=== PATIENT | male | born 1935 | race Caucasian/White ===

== ENCOUNTER 2017-06-03 22:26 | Emergency (ER) | payer MEDICARE, OTHER ==
[~2017-06-03] VITALS: Ht 175.3 cm; Wt 88.6 kg
[~2017-06-03 22:26] MED LIST: CITA20TA11 PO; DABI150C PO; FLO0.4C PO; METF500T PO; METO100T14 PO; PRAV10TA38 PO
[2017-06-03] MEDS ORDERED: orphenadrine citrate 60mg/2ml inj. IM ONE (23:00)
[2017-06-03] MEDS ORDERED: HYDROcodone/acetaminophen 5mg/325mg tablet PO ONE (23:00)
[2017-06-03] MEDS ORDERED: CYCL-1 PO (23:44)
[2017-06-03] MEDS ORDERED: ketorolac trometh inj. 60 MG/2 ML VIAL IM ONE (23:45)
[2017-06-04] MEDS ORDERED: HYDROmorphone 1 mg/ml syringe IM ONE (00:55)
[2017-06-04] MEDS ORDERED: HYDROmorphone inj. 0.5 MG/0.5 ML DISP.SYRIN ONE (01:11)
[2017-06-04 01:39] VITALS: BP 100/80
== END 2017-06-04 01:42 | disposition home or self-care (01) ==
LOC: ER 22:27
DX: S33.5XXA Sprain of ligaments of lumbar spine, initial encounter (principal); M62.830 Muscle spasm of back; E11.9 Type 2 diabetes mellitus without complications; E78.00 Pure hypercholesterolemia, unspecified; I48.91 Unspecified atrial fibrillation; Z86.73 Personal history of transient ischemic attack (TIA), and cerebral infarction without residual deficits; Z95.0 Presence of cardiac pacemaker; Z88.8 Allergy status to other drugs, medicaments and biological substances; X50.3XXA Overexertion from repetitive movements, initial encounter; Y93.89 Activity, other specified; Y92.89 Other specified places as the place of occurrence of the external cause; Y99.8 Other external cause status
CPT/HCPCS: 96372; 99284; J1170; J1885; J2360

== ENCOUNTER 2018-09-18 15:58 | Emergency (ER) | payer MEDICARE, OTHER ==
[~2018-09-18] VITALS: Ht 144.8 cm; Wt 86.4 kg
[~2018-09-18 15:58] MED LIST changes: -CITA20TA11 PO; +CITA20TA28 PO; +CYCL-1 PO
[2018-09-18] MEDS ORDERED: HYDROcodone/acetaminophen 10/325mg tab PO ONE (17:15)
[2018-09-18] MEDS ORDERED: HYDR-4383 PO (18:30)
[2018-09-18 18:44] VITALS: BP 135/57
== END 2018-09-18 18:45 | disposition home or self-care (01) ==
LOC: ER 15:58
DX: S20.219A Contusion of unspecified front wall of thorax, initial encounter (principal); R07.89 Other chest pain; M54.5 Low back pain; I49.9 Cardiac arrhythmia, unspecified; I48.91 Unspecified atrial fibrillation; E78.00 Pure hypercholesterolemia, unspecified; E11.9 Type 2 diabetes mellitus without complications; Z95.0 Presence of cardiac pacemaker; Z98.890 Other specified postprocedural states; Z86.73 Personal history of transient ischemic attack (TIA), and cerebral infarction without residual deficits; Z79.01 Long term (current) use of anticoagulants; Z79.84 Long term (current) use of oral hypoglycemic drugs; Z79.899 Other long term (current) drug therapy; W01.0XXA Fall on same level from slipping, tripping and stumbling without subsequent striking against object, initial encounter; Y93.89 Activity, other specified; Y92.89 Other specified places as the place of occurrence of the external cause; Y99.8 Other external cause status
CPT/HCPCS: 71046; 99284

== ENCOUNTER 2019-04-21 20:47 | Inpatient (IN) | payer MEDICARE, OTHER ==
[~2019-04-21] VITALS: Ht 175.3 cm; Wt 88.3 kg
[~2019-04-21 20:47] MED LIST changes: +HYDR-4383 PO
[2019-04-21] MEDS ORDERED: diltiazem 5mg/ml 5ml inj. IV ONE ×2 (20:55→21:45)
--- NOTE | 2019-04-21 20:56 | NUR ---
RT AT BEDSIDE FOR ABG - LABS AND BLOOD CULTURES HAVE BEEN OBTAINED. PT GETTING CARDIZEM NOW. AT BEDSIDE.
[2019-04-21] MEDS ORDERED: aspirin 81mg tab.chew PO ONE (21:00)
[2019-04-21 21:10] LABS: ABG BASE EXCESS -1.8 mmol/L (-2.0-3.0); ABG HCO3 21.4 mmol/L (22.0-26.0); ABG PCO2 (T) 31.6 mmHg (35.0-45.0); ABG PH (T) 7.447 (7.350-7.450); FCOHb 0.8 % (0.5-1.5); FLOW 15 L/min; FMetHb 0.1 % (0.3-1.12); FO2Hb 98.1 % (94-100); PATIENT TEMPERATURE 36.7; RESPIRATORY RATE (OBSERVED) 30 b/min; TOTAL HEMOGLOBIN 13.4 G/dl (14.0-17.9)
--- NOTE | 2019-04-21 21:12 | NUR ---
RT AT BEDSIDE SWITCHING PT TO NC AT 6LPM THEN TITRATE DOWN
[2019-04-21 21:13] LABS: BASOPHILS % (AUTO) 0.2 % (0-1); EOSINOPHILS # (AUTO) 0.1 X10'3 (0-0.9); EOSINOPHILS % (AUTO) 0.5 % (0-6); HEMATOCRIT 37.5 % (42.0-52.0); HEMOGLOBIN 12.7 g/dl (14.0-17.9); LYMPHOCYTES # (AUTO) 1.7 X10'3 (1.1-4.8); LYMPHOCYTES % (AUTO) 6.7 % (21-51); MEAN CORPUSCULAR HEMOGLOBIN 33.9 PG (27.0-31.0); MEAN CORPUSCULAR HGB CONC 33.8 g/dL (33.0-36.5); MEAN CORPUSCULAR VOLUME 100.4 FL (78-98); MEAN PLATELET VOLUME 7.7 FL (7.4-10.4); MONOCYTES # (AUTO) 1.3 X10'3 (0-0.9); MONOCYTES % (AUTO) 5.1 % (2-12); NEUTROPHILS % (AUTO) 87.5 % (42-75); PLATELET COUNT 415 X10'3 (140-440); RED BLOOD COUNT 3.74 X10'6 (4.70-6.10)
[2019-04-21 21:17] LABS: WHITE BLOOD COUNT 25.1 X10'3 (4.5-11.0)
[2019-04-21] MEDS ORDERED: levoFLOXACIN-Levaquin 750MG/D5 150 ML IV STA (21:21)
[2019-04-21] MEDS ORDERED: normal saline 1000ML IV soln IVB ONE (21:25)
[2019-04-21 21:26] LABS: PARTIAL THROMBOPLASTIN TIME 25 SECONDS (22-32)
[2019-04-21 21:29] LABS: ALANINE AMINOTRANSFERASE 25 U/L (12-78); ALBUMIN 2.7 G/DL (3.4-5.0); ALBUMIN/GLOBULIN RATIO 0.6 (1.1-1.5); ALKALINE PHOSPHATASE 86 IU/L (46-116); ANION GAP 8 (8-16); ASPARTATE AMINO TRANSFERASE 21 U/L (10-37); BILIRUBIN,TOTAL 0.8 MG/DL (0.1-1.0); BLOOD UREA NITROGEN 15 MG/DL (7-18); BUN/CREATININE RATIO 11.1 (5.4-32.0); CALCIUM 8.9 MG/DL (8.5-10.1); CHLORIDE 97 MMOL/L (99-107); CREATININE 1.35 MG/DL (0.60-1.10); SODIUM 133 MMOL/L (135-145); TOTAL CARBON DIOXIDE 28.1 MMOL/L (24-32); TOTAL PROTEIN 7.6 G/DL (6.4-8.2); eGFR 50 ML/MIN
[2019-04-21 21:31] LABS: BANDS% (MANUAL) 6 % (0-10); LYMPHOCYTES % (MANUAL) 9 % (21-51); MONOCYTES % (MANUAL) 6 % (2-12); NEUTROPHILS % (MANUAL) 79 % (42-75); TOTAL CELLS COUNTED 100
[2019-04-21 21:32] LABS: PLATELET ESTIMATE NORMAL
[2019-04-21 21:33] LABS: GLUCOSE 189 MG/DL (70-104)
[2019-04-21 21:35] LABS: MAGNESIUM 1.7 MG/DL (1.5-2.4)
--- NOTE | 2019-04-21 21:39 | NUR ---
PHARMACY HAS BEEN CONTACTED RE: [facility] - THEY ARE PREPARING IT NOW.
[2019-04-21] MEDS: diltiazem-NS 100mg/100ml 100 ML IV SCH (21:41)
--- NOTE | 2019-04-21 21:48 | NUR ---
MD AT BEDSIDE TO UPDATE PT AND FAMILY. ANOTHER 10MG CARDIZEM PUSH HAS BEEN GIVEN AND CARDIZEM DRIP HAS BEEN STARTED.
--- NOTE | 2019-04-21 21:54 | NUR ---
PT PREFERS TO REST ON HIS LEFT SIDE. ENCOURAGED PT TO ASK FOR ASSISTANCE IN CHANGING POSITIONS IF NEEDED SO HE DOESN'T EXERT HIMSELF.
--- NOTE | 2019-04-21 22:08 | NUR ---
SPOKE WITH MD GUILLORY - HE WOULD LIKE TO TITRATE THE CARDIZEM UP BY 5MG Q 30 MINS
--- NOTE | 2019-04-21 23:48 | NUR ---
HOSPITALIST AT BEDSIDE FOR ADMISSION
[2019-04-22] VITALS (17 sets, daily range): BP systolic 86–124; BP diastolic 35–76
[2019-04-22] MEDS ORDERED: metoprolol tartrate 50mg tablet PO ONE (00:15)
[2019-04-22] MEDS ORDERED: magnesium 4gm in 100ml NS 100 ML IV PRN (00:20)
[2019-04-22] MEDS ORDERED: potassium CL 10mEq/100ml bag 100 ML IV PRN ×2 (00:20)
[2019-04-22] MEDS ORDERED: magnesium 2GM in 50ml NS 50 ML IV PRN (00:20)
[2019-04-22] MEDS ORDERED: dextrose ORAL solution 15 GM/59 ML bottle PO PRN (00:20)
[2019-04-22] MEDS ORDERED: glucagon, human recombinant 1mg kit SUBCUT PRN (00:20)
[2019-04-22] MEDS ORDERED: acetaminophen 325mg tablet PO PRN (00:20)
[2019-04-22] MEDS ORDERED: ondansetron/PF 4mg/2ml inj IV PRN (00:20)
[2019-04-22] MEDS ORDERED: potassium Cl 20 mEq SR tablet PO PRN ×2 (00:20)
[2019-04-22] MEDS ORDERED: insulin Lispro (HumaLOG) vial - multi-dose SQ SCH (00:20)
[2019-04-22] MEDS ORDERED: HYDROmorphone inj. 0.5 MG/0.5 ML DISP.SYRIN IV PRN (00:20)
[2019-04-22] MEDS ORDERED: docusate sod 100mg capsule PO PRN (00:20)
[2019-04-22] MEDS ORDERED: ipratropium/albuterol 3ml nebule NEB PRN (00:20)
[2019-04-22] MEDS ORDERED: MESSAGE TO PHARMACY PO ONE (00:20)
[2019-04-22] MEDS ORDERED: dextrose 50%-water 50ml dispensing syringe IV PRN ×2 (00:20)
[2019-04-22] MEDS: normal saline 1000ml 1,000 ML IV SCH ×3 (00:25→08:43)
--- NOTE | 2019-04-22 00:25 | NUR ---
VERBAL ORDER FOR NORCO 5 MG SECONDARY TO NOT HAVING DILAUDID AVAILABLE. ALSO, PT GIVEN 100MG METOPROLOL AND MD RAMIREZ WANTED TO HAVE CARDIZEM TURNED DOWN TO 15MG/HR -
[2019-04-22] MEDS ORDERED: HYDROcodone/acetaminophen 5mg/325mg tablet PO ONE (00:30)
--- NOTE | 2019-04-22 00:44 | NUR ---
SIERRA VERIFIED WITH RN
[2019-04-22 00:47] LABS: HEMOGLOBIN A1C 6.1 % (4.5-6.2)
[2019-04-22] MEDS: diltiazem-NS 100mg/100ml 100 ML IV SCH (00:56)
[2019-04-22] MEDS ORDERED: diltiazem-NS 100mg/100ml 100 ML IV SCH ×2 (01:00→01:40)
[2019-04-22 01:12] LABS: ALANINE AMINOTRANSFERASE 25 U/L (12-78); ALBUMIN 2.2 G/DL (3.4-5.0); ALBUMIN/GLOBULIN RATIO 0.5 (1.1-1.5); ALKALINE PHOSPHATASE 78 IU/L (46-116); ANION GAP 7 (8-16); ASPARTATE AMINO TRANSFERASE 26 U/L (10-37); BILIRUBIN,TOTAL 0.7 MG/DL (0.1-1.0); BLOOD UREA NITROGEN 16 MG/DL (7-18); BUN/CREATININE RATIO 12.7 (5.4-32.0); CALCIUM 8.6 MG/DL (8.5-10.1); CHLORIDE 101 MMOL/L (99-107); CREATININE 1.26 MG/DL (0.60-1.10); POTASSIUM 4.1 MMOL/L (3.5-5.1); SODIUM 135 MMOL/L (135-145); TOTAL CARBON DIOXIDE 27.1 MMOL/L (24-32); TOTAL PROTEIN 6.5 G/DL (6.4-8.2); eGFR 55 ML/MIN
[2019-04-22 01:13] LABS: GLUCOSE 113 MG/DL (70-104)
[2019-04-22 01:16] LABS: BASOPHILS # (AUTO) 0.1 X10'3 (0-0.2); BASOPHILS % (AUTO) 0.3 % (0-1); EOSINOPHILS % (AUTO) 0 % (0-6); HEMATOCRIT 35.7 % (42.0-52.0); HEMOGLOBIN 12.2 g/dl (14.0-17.9); LYMPHOCYTES # (AUTO) 1.1 X10'3 (1.1-4.8); LYMPHOCYTES % (AUTO) 4.8 % (21-51); MEAN CORPUSCULAR HGB CONC 34.2 g/dL (33.0-36.5); MEAN CORPUSCULAR VOLUME 99.4 FL (78-98); MEAN PLATELET VOLUME 7.6 FL (7.4-10.4); MONOCYTES # (AUTO) 1.6 X10'3 (0-0.9); MONOCYTES % (AUTO) 7.1 % (2-12); NEUTROPHILS % (AUTO) 87.8 % (42-75); PLATELET COUNT 373 X10'3 (140-440); RED BLOOD COUNT 3.59 X10'6 (4.70-6.10); RED CELL DISTRIBUTION WIDTH 13.3 % (11.5-14.5); WHITE BLOOD COUNT 22.8 X10'3 (4.5-11.0)
--- NOTE | 2019-04-22 01:38 | NUR ---
PAGER ID: [phone] MESSAGE: Abhishek Melgar is on Cardizem@15 ml/hr for AFIB RVR. His BP is consistently on the lower side. His best one for us is 86/55 and HR 81. Do you want to lower the rate? Thank you, Zunilda SALAZAR PCU Orders to lower the Cardizem to 5ml/hr, and if vital signs are stable then to D/C the drip.
--- NOTE | 2019-04-22 03:06 | NUR ---
PAGER ID: [phone] MESSAGE: Abhishekflaca CowartMaximino on Cardizem@5 from 15ml/hr, but blood pressure is trending lower. 88/35 Map 43. HR 80 Orders to DC cardizem ggt. Will continue to monitor.
--- NOTE | 2019-04-22 03:13 | NUR ---
Report from Joss RN, in the ER. Arrived to [facility]@0110 on a gurney. Patient being monitored on mobile 68. Educated on MRSA testing. Vital signs stable on arrival
--- NOTE | 2019-04-22 06:40 | NUR ---
Problems reprioritized. Patient report given, questions answered & plan of care reviewed with MARIE PHAM.
--- NOTE | 2019-04-22 06:44 | NUR ---
Patient in room PCU 3024. I have received report from Zunilda SALAZAR and had the opportunity to ask questions and assume patient care.
[2019-04-22] MEDS: K and/or MAG REPLACEMENT MC SCH ×2 (08:00→20:00)
[2019-04-22] MEDS: metoprolol tartrate 50mg tablet PO SCH ×2 (08:00→19:47)
[2019-04-22] MEDS: levoFLOXACIN-Levaquin 500mg/D5 100 ML IV SCH (08:43)
[2019-04-22] MEDS: citalopram 20mg tablet PO SCH (08:44)
[2019-04-22] MEDS: tamsulosin 0.4mg capsule PO SCH (08:44)
[2019-04-22] MEDS: dabigatran 150mg capsule PO SCH ×2 (08:44→21:22)
--- NOTE | 2019-04-22 10:34 | NUR ---
DM consult: Pt with A1c 6.1, DM education not warranted at this time. Will continue to follow. Addendum: 04/22/19 at [address] Amended: Links added.
[2019-04-22] MEDS ORDERED: iohexol 300mg/ml 100ml inj. ONE (10:39)
[2019-04-22] MEDS ORDERED: iohexol 350MG/ML 100ml bottle IV ONE (10:44)
[2019-04-22] MEDS: MESSAGE TO NURSING PO NR (11:40)
--- NOTE | 2019-04-22 12:07 | NUR ---
Page Dr. Angeles. PAGER ID: [phone] MESSAGE: Room 3024B Abhishek Stanton: Patient's HR this morning was in the low 100's and is now in the 130's, low 140's. Please advise, thank you Natasha ext [phone].
[2019-04-22] MEDS ORDERED: methylPREDNISolone sod succ 125mg/2ml vial IV ONE (13:25)
[2019-04-22] MEDS ORDERED: digoxin 250mcg/ml 2ml ampule IV ONE ×2 (14:00→20:00)
[2019-04-22] MEDS: ipratropium/albuterol 3ml nebule NEB SCH ×3 (16:24→23:44)
[2019-04-22] MEDS ORDERED: amiodarone 150mg/dext, iso-os 100 ML IV ONE (17:40)
[2019-04-22] MEDS: lactose-reduced food (Ensure High Protein) 237ml bottle PO SCH (18:00)
[2019-04-22] MEDS: amiodarone/D5 360MG/200ML BAG 200 ML IV SCH (18:14)
--- NOTE | 2019-04-22 18:39 | NUR ---
Patient in room PCU 3024. I have received report from Natasha Schwartz RN and had the opportunity to ask questions and assume patient care.
--- NOTE | 2019-04-22 18:41 | NUR ---
Problems reprioritized. Patient report given, questions answered & plan of care reviewed with Zunilda RN. Patient stable at time of transfer of care.
[2019-04-22] MEDS: lactobacillus rhamnosus 10,000 MMU CELLS/CAPSULE PO SCH (19:40)
[2019-04-22] MEDS: docusate sod 100mg capsule PO SCH (19:40)
[2019-04-22] MEDS: insulin glargine (Lantus) pen - multi-dose SQ SCH (21:20)
[2019-04-22] MEDS: pravastatin 40mg tablet PO SCH (21:22)
[2019-04-23] VITALS (13 sets, daily range): BP systolic 90–120; BP diastolic 33–84
[2019-04-23] MEDS: methylPREDNISolone sod succ 125mg/2ml vial IV SCH ×3 (00:01→16:39)
[2019-04-23] MEDS: amiodarone/D5 360MG/200ML BAG 200 ML IV SCH ×3 (00:08→10:53)
[2019-04-23] MEDS ORDERED: digoxin 250mcg/ml 2ml ampule IV ONE (02:00)
[2019-04-23] MEDS: ipratropium/albuterol 3ml nebule NEB SCH ×6 (03:53→23:00)
[2019-04-23 05:14] LABS: BASOPHILS % (AUTO) 0 % (0-1); EOSINOPHILS % (AUTO) 0 % (0-6); HEMATOCRIT 33.7 % (42.0-52.0); HEMOGLOBIN 11.4 g/dl (14.0-17.9); LYMPHOCYTES # (AUTO) 0.8 X10'3 (1.1-4.8); LYMPHOCYTES % (AUTO) 2.8 % (21-51); MEAN CORPUSCULAR HGB CONC 33.7 g/dL (33.0-36.5); MONOCYTES # (AUTO) 1.5 X10'3 (0-0.9); MONOCYTES % (AUTO) 5.3 % (2-12); NEUTROPHILS # (AUTO) 26.3 X10'3 (1.8-7.7); NEUTROPHILS % (AUTO) 91.9 % (42-75); PLATELET COUNT 346 X10'3 (140-440); RED BLOOD COUNT 3.34 X10'6 (4.70-6.10); RED CELL DISTRIBUTION WIDTH 13.5 % (11.5-14.5)
[2019-04-23 05:34] LABS: ALANINE AMINOTRANSFERASE 27 U/L (12-78); ALBUMIN/GLOBULIN RATIO 0.4 (1.1-1.5); ALKALINE PHOSPHATASE 86 IU/L (46-116); ANION GAP 10 (8-16); ASPARTATE AMINO TRANSFERASE 18 U/L (10-37); BILIRUBIN,TOTAL 0.3 MG/DL (0.1-1.0); BLOOD UREA NITROGEN 18 MG/DL (7-18); BUN/CREATININE RATIO 14.9 (5.4-32.0); CALCIUM 8.1 MG/DL (8.5-10.1); CHLORIDE 101 MMOL/L (99-107); CREATININE 1.21 MG/DL (0.60-1.10); GLUCOSE 191 MG/DL (70-104); MAGNESIUM 1.8 MG/DL (1.5-2.4); POTASSIUM 4.2 MMOL/L (3.5-5.1); SODIUM 133 MMOL/L (135-145); TOTAL CARBON DIOXIDE 22.2 MMOL/L (24-32); TOTAL PROTEIN 6.6 G/DL (6.4-8.2); eGFR 57 ML/MIN
[2019-04-23 06:07] LABS: WHITE BLOOD COUNT 28.6 X10'3 (4.5-11.0)
--- NOTE | 2019-04-23 06:15 | NUR ---
Problems reprioritized. Patient report given, questions answered & plan of care reviewed with Tiny Cerda RN.
--- NOTE | 2019-04-23 06:24 | NUR ---
PAGER ID: [phone] MESSAGE: Tiny meera [id number]. KRYSTAL Chilel [id number]. Critical lab results of WBC 28.6, up from 22.8 yesterday. Thank you!
--- NOTE | 2019-04-23 06:40 | NUR ---
Patient in room PCU 3024B. I have received report from Zunilda SALAZAR and had the opportunity to ask questions and assume patient care.
[2019-04-23 07:17] LABS: PLATELET ESTIMATE NORMAL; TOTAL CELLS COUNTED 100
[2019-04-23] MEDS: levoFLOXACIN-Levaquin 500mg/D5 100 ML IV SCH ×2 (07:32→10:13)
[2019-04-23] MEDS: tamsulosin 0.4mg capsule PO SCH (07:33)
[2019-04-23] MEDS: lactobacillus rhamnosus 10,000 MMU CELLS/CAPSULE PO SCH ×2 (07:33→20:16)
[2019-04-23] MEDS: metoprolol tartrate 50mg tablet PO SCH ×2 (07:33→20:17)
[2019-04-23] MEDS: dabigatran 150mg capsule PO SCH (07:33)
[2019-04-23] MEDS: docusate sod 100mg capsule PO SCH ×2 (07:34→20:16)
[2019-04-23] MEDS: citalopram 20mg tablet PO SCH (07:34)
[2019-04-23] MEDS: lactose-reduced food (Ensure High Protein) 237ml bottle PO SCH ×3 (08:00→18:00)
[2019-04-23] MEDS: K and/or MAG REPLACEMENT MC SCH ×2 (08:00→20:00)
--- NOTE | 2019-04-23 09:34 | NUR ---
Patient needs new PIV for IV antibiotics, incompatible with amiodarone drip. I have attempted x2, charge hand attempted x2. Unable to start new IV. Paged PICC RN for assistance.
[2019-04-23] MEDS: MESSAGE TO NURSING PO NR (10:20)
[2019-04-23] MEDS: amiodarone 200mg tablet PO SCH ×2 (13:52→20:16)
--- NOTE | 2019-04-23 13:57 | NUR ---
Order by Dr. Angeles to transition patient to amiodarone PO. Amiodarone drip discontinued at this time and dose of amiodarone PO given. Patient remains on bedside monitor. Will continue to monitor patient.
--- NOTE | 2019-04-23 16:07 | NUR ---
Paged hospitalist, Dr. Angeles. Patient's heart rate is back in the 130-150's atrial fibrillation. BP 123/58. Patient has no complaints. Paged hospitalist regarding HR PAGER ID: [phone] MESSAGE: GLEN Amber [phone]. RE Ranjana Stanton [id number]. Patient HR in the 130-150's sustained a-fib, BP 123/58. Please advise. Thank you!
[2019-04-23] MEDS: normal saline 1000ml 1,000 ML IV SCH (16:39)
--- NOTE | 2019-04-23 16:48 | NUR ---
Patient's heart rate sustaining in the 120-130's a-fib. Awaiting call back from Dr. Angeles with recommendations. Will continue to monitor patient.
--- NOTE | 2019-04-23 18:19 | NUR ---
Problems reprioritized. Patient report given, questions answered & plan of care reviewed with Zunilda RN. Patient sitting up in bed eating dinner, HR in 130's a-fib. Did not receive a response from Dr. Angeles about HR, passed on report to Zunilda SALAZAR. hand screen printer aware.
--- NOTE | 2019-04-23 18:33 | NUR ---
Patient in room PCU 3024. I have received report from Tiny Cerda RN and had the opportunity to ask questions and assume patient care.
[2019-04-23] MEDS: pravastatin 40mg tablet PO SCH (20:17)
[2019-04-23] MEDS: insulin glargine (Lantus) pen - multi-dose SQ SCH (20:18)
[2019-04-23] MEDS: Melatonin 3mg tablet PO PRN (21:41)
[2019-04-24] VITALS (10 sets, daily range): BP systolic 86–128; BP diastolic 47–75
[2019-04-24] MEDS: methylPREDNISolone sod succ 125mg/2ml vial IV SCH ×3 (00:13→16:44)
[2019-04-24] MEDS: ipratropium/albuterol 3ml nebule NEB SCH ×3 (03:00→11:41)
[2019-04-24 05:27] LABS: BASOPHILS % (AUTO) 0.1 % (0-1); EOSINOPHILS % (AUTO) 0 % (0-6); HEMATOCRIT 32.3 % (42.0-52.0); HEMOGLOBIN 10.9 g/dl (14.0-17.9); LYMPHOCYTES # (AUTO) 0.5 X10'3 (1.1-4.8); MEAN CORPUSCULAR HEMOGLOBIN 33.7 PG (27.0-31.0); MEAN CORPUSCULAR HGB CONC 33.8 g/dL (33.0-36.5); MEAN CORPUSCULAR VOLUME 99.7 FL (78-98); MEAN PLATELET VOLUME 7.7 FL (7.4-10.4); MONOCYTES # (AUTO) 1.2 X10'3 (0-0.9); MONOCYTES % (AUTO) 4.9 % (2-12); NEUTROPHILS # (AUTO) 23.2 X10'3 (1.8-7.7); PLATELET COUNT 366 X10'3 (140-440); RED BLOOD COUNT 3.23 X10'6 (4.70-6.10); RED CELL DISTRIBUTION WIDTH 13.3 % (11.5-14.5); WHITE BLOOD COUNT 24.9 X10'3 (4.5-11.0)
[2019-04-24 05:42] LABS: ALANINE AMINOTRANSFERASE 39 U/L (12-78); ALBUMIN/GLOBULIN RATIO 0.5 (1.1-1.5); ALKALINE PHOSPHATASE 76 IU/L (46-116); ANION GAP 9 (8-16); ASPARTATE AMINO TRANSFERASE 22 U/L (10-37); BILIRUBIN,TOTAL 0.3 MG/DL (0.1-1.0); BLOOD UREA NITROGEN 20 MG/DL (7-18); BUN/CREATININE RATIO 18.7 (5.4-32.0); CALCIUM 8.7 MG/DL (8.5-10.1); CHLORIDE 102 MMOL/L (99-107); CREATININE 1.07 MG/DL (0.60-1.10); GLUCOSE 154 MG/DL (70-104); MAGNESIUM 2.2 MG/DL (1.5-2.4); POTASSIUM 4.2 MMOL/L (3.5-5.1); SODIUM 136 MMOL/L (135-145); TOTAL CARBON DIOXIDE 25.2 MMOL/L (24-32); TOTAL PROTEIN 6.4 G/DL (6.4-8.2); eGFR 66 ML/MIN
--- NOTE | 2019-04-24 06:23 | NUR ---
Problems reprioritized. Patient report given, questions answered & plan of care reviewed with Tiny Cerda RN.
--- NOTE | 2019-04-24 06:41 | NUR ---
Patient in room PCU 3024B. I have received report from Zunilda SALAZAR and had the opportunity to ask questions and assume patient care. Patient laying in bed, eyes closed, on bedside monitor.
[2019-04-24] MEDS: levoFLOXACIN-Levaquin 500mg/D5 100 ML IV SCH (07:50)
[2019-04-24] MEDS: amiodarone 200mg tablet PO SCH ×2 (07:51→20:25)
[2019-04-24] MEDS: citalopram 20mg tablet PO SCH (07:51)
[2019-04-24] MEDS: docusate sod 100mg capsule PO SCH ×2 (07:51→20:25)
[2019-04-24] MEDS: tamsulosin 0.4mg capsule PO SCH (07:51)
[2019-04-24] MEDS: metoprolol succinate 25mg (24-HOUR) SR. Tablet PO SCH (07:52)
[2019-04-24] MEDS: lactobacillus rhamnosus 10,000 MMU CELLS/CAPSULE PO SCH ×2 (07:52→20:25)
[2019-04-24] MEDS: digoxin 250mcg (0.25mg) tablet PO SCH (07:53)
[2019-04-24] MEDS: K and/or MAG REPLACEMENT MC SCH ×2 (08:00→20:00)
[2019-04-24] MEDS: lactose-reduced food (Ensure High Protein) 237ml bottle PO SCH ×3 (08:00→18:00)
[2019-04-24] MEDS: MESSAGE TO NURSING PO NR (10:17)
[2019-04-24] MEDS ORDERED: ipratropium/albuterol 3ml nebule NEB PRN (12:25)
[2019-04-24] MEDS: normal saline 1000ml 1,000 ML IV SCH (13:14)
[2019-04-24] MEDS: magnesium hydroxide 30ml (MOM) UD suspension PO PRN (13:14)
--- NOTE | 2019-04-24 13:26 | NUR ---
Spoke with angio/IR department regarding thoracentesis. Patient is on the list for a thoracentesis today. All blood thinners held since last night. Will await thoracentesis
[2019-04-24] MEDS ORDERED: bisacodyl 10mg suppository rectal RC ONE (16:00)
[2019-04-24 17:00] LABS: BFAPPEAR CLOUDY; BFCOLOR YELLOW; LYMPHOCYTES,BODY FLUID 7 %; MONOCYTES,BODY FLUID 5 %; NEUTROPHILS,BODY FLUID 88 %
[2019-04-24 17:01] LABS: BF RBC COUNT 1875 /CU MM; BF WBC COUNT 3000 /CU MM (0-1000); BFSOURCE LEFT PLEURAL FLD; BFVOLUME 58 ML; PLEURAL FLUID PH 6.871 (7.63-7.65)
[2019-04-24 17:05] LABS: LDH,BODY FLUID 1442 U/L; TOTAL PROTEIN,BODY FLUID 3.9 G/DL
[2019-04-24 17:06] LABS: GLUCOSE,BODY FLUID 65 MG/DL
--- NOTE | 2019-04-24 18:15 | NUR ---
Patient in room PCU 3024. I have received report from Tiny SALAZAR and had the opportunity to ask questions and assume patient care. Patient finishing up dinner, all vitals stable, will continue to monitor.
--- NOTE | 2019-04-24 18:39 | NUR ---
Problems reprioritized. Patient report given, questions answered & plan of care reviewed with Flor SALAZAR.
[2019-04-24] MEDS: pravastatin 40mg tablet PO SCH (20:25)
[2019-04-24] MEDS: HYDROmorphone 1 mg/ml syringe IV PRN (20:27)
[2019-04-24] MEDS: insulin glargine (Lantus) pen - multi-dose SQ SCH (21:00)
[2019-04-25] MEDS: methylPREDNISolone sod succ 125mg/2ml vial IV SCH ×3 (01:05→16:57)
[2019-04-25 03:00] VITALS: BP 114/61
[2019-04-25 05:26] LABS: BASOPHILS % (AUTO) 0.1 % (0-1); EOSINOPHILS % (AUTO) 0 % (0-6); HEMATOCRIT 31.8 % (42.0-52.0); HEMOGLOBIN 10.9 g/dl (14.0-17.9); LYMPHOCYTES # (AUTO) 0.5 X10'3 (1.1-4.8); LYMPHOCYTES % (AUTO) 3.5 % (21-51); MEAN CORPUSCULAR HEMOGLOBIN 34.3 PG (27.0-31.0); MEAN CORPUSCULAR HGB CONC 34.3 g/dL (33.0-36.5); MEAN PLATELET VOLUME 7.5 FL (7.4-10.4); MONOCYTES # (AUTO) 0.6 X10'3 (0-0.9); MONOCYTES % (AUTO) 4.6 % (2-12); NEUTROPHILS # (AUTO) 12.9 X10'3 (1.8-7.7); NEUTROPHILS % (AUTO) 91.8 % (42-75); PLATELET COUNT 372 X10'3 (140-440); RED BLOOD COUNT 3.18 X10'6 (4.70-6.10); RED CELL DISTRIBUTION WIDTH 13.6 % (11.5-14.5)
[2019-04-25 06:00] VITALS: BP 111/51
[2019-04-25 06:02] LABS: ALANINE AMINOTRANSFERASE 38 U/L (12-78); ALBUMIN 1.9 G/DL (3.4-5.0); ALBUMIN/GLOBULIN RATIO 0.5 (1.1-1.5); ALKALINE PHOSPHATASE 73 IU/L (46-116); ANION GAP 5 (8-16); ASPARTATE AMINO TRANSFERASE 21 U/L (10-37); BILIRUBIN,TOTAL 0.2 MG/DL (0.1-1.0); BLOOD UREA NITROGEN 22 MG/DL (7-18); BUN/CREATININE RATIO 22.2 (5.4-32.0); CALCIUM 8.7 MG/DL (8.5-10.1); CHLORIDE 104 MMOL/L (99-107); CREATININE 0.99 MG/DL (0.60-1.10); GLUCOSE 133 MG/DL (70-104); MAGNESIUM 2.4 MG/DL (1.5-2.4); POTASSIUM 4.9 MMOL/L (3.5-5.1); SODIUM 138 MMOL/L (135-145); TOTAL CARBON DIOXIDE 29.1 MMOL/L (24-32); TOTAL PROTEIN 6.1 G/DL (6.4-8.2); eGFR 72 ML/MIN
--- NOTE | 2019-04-25 06:41 | NUR ---
Patient in room PCU 3023. I have received report from Flor SALAZAR and had the opportunity to ask questions and assume patient care.
[2019-04-25] MEDS: K and/or MAG REPLACEMENT MC SCH ×2 (07:03→20:00)
[2019-04-25] MEDS: levoFLOXACIN-Levaquin 500mg/D5 100 ML IV SCH (07:31)
[2019-04-25] MEDS: metoprolol succinate 25mg (24-HOUR) SR. Tablet PO SCH (07:31)
[2019-04-25] MEDS: lactobacillus rhamnosus 10,000 MMU CELLS/CAPSULE PO SCH ×2 (07:32→20:21)
[2019-04-25] MEDS: docusate sod 100mg capsule PO SCH ×2 (07:32→20:00)
[2019-04-25] MEDS: citalopram 20mg tablet PO SCH (07:32)
[2019-04-25] MEDS: tamsulosin 0.4mg capsule PO SCH (07:32)
[2019-04-25] MEDS: digoxin 250mcg (0.25mg) tablet PO SCH (07:32)
[2019-04-25] MEDS: magnesium hydroxide 30ml (MOM) UD suspension PO PRN (07:33)
[2019-04-25] MEDS: lactose-reduced food (Ensure High Protein) 237ml bottle PO SCH ×3 (07:33→18:00)
[2019-04-25] MEDS: normal saline 1000ml 1,000 ML IV SCH (07:33)
[2019-04-25] MEDS: amiodarone 200mg tablet PO SCH ×2 (07:34→20:21)
[2019-04-25 11:00] VITALS: BP 111/51
--- NOTE | 2019-04-25 14:59 | NUR ---
Patient in room PCU 3024. I have received report from MARIE Cui and had the opportunity to ask questions and assume patient care.
[2019-04-25 15:00] VITALS: BP 113/53
[2019-04-25 18:00] VITALS: BP 129/82
--- NOTE | 2019-04-25 18:36 | NUR ---
Patient in room PCU 3024. I have received report from Cezar SALAZAR and had the opportunity to ask questions and assume patient care.
--- NOTE | 2019-04-25 18:58 | NUR ---
Patient in room PCU 3024. I have received report from and had the opportunity to ask questions and assume patient care.
--- NOTE | 2019-04-25 18:58 | NUR ---
Problems reprioritized. Patient report given, questions answered & plan of care reviewed with Ritu RN.
[2019-04-25] MEDS: pravastatin 40mg tablet PO SCH (20:23)
[2019-04-25] MEDS: HYDROmorphone 1 mg/ml syringe IV PRN (20:24)
[2019-04-25] MEDS: insulin glargine (Lantus) pen - multi-dose SQ SCH (21:00)
[2019-04-25 22:00] VITALS: BP 126/74
[2019-04-26 02:00] VITALS: BP 101/61
[2019-04-26] MEDS: normal saline 1000ml 1,000 ML IV SCH ×2 (03:53→23:17)
[2019-04-26 06:00] VITALS: BP 121/75
--- NOTE | 2019-04-26 06:20 | NUR ---
Problems reprioritized. Patient report given, questions answered & plan of care reviewed with Basilia SALAZAR.
--- NOTE | 2019-04-26 06:29 | NUR ---
Patient in room PCU 3024. I have received report from Mague SALAZAR and had the opportunity to ask questions and assume patient care.
[2019-04-26 07:50] LABS: BASOPHILS % (AUTO) 0.5 % (0-1); EOSINOPHILS % (AUTO) 0 % (0-6); HEMATOCRIT 35.6 % (42.0-52.0); HEMOGLOBIN 12.2 g/dl (14.0-17.9); LYMPHOCYTES # (AUTO) 0.6 X10'3 (1.1-4.8); LYMPHOCYTES % (AUTO) 7.2 % (21-51); MEAN CORPUSCULAR HEMOGLOBIN 34.1 PG (27.0-31.0); MEAN CORPUSCULAR HGB CONC 34.3 g/dL (33.0-36.5); MEAN CORPUSCULAR VOLUME 99.4 FL (78-98); MEAN PLATELET VOLUME 7.4 FL (7.4-10.4); MONOCYTES # (AUTO) 0.7 X10'3 (0-0.9); MONOCYTES % (AUTO) 7.3 % (2-12); NEUTROPHILS # (AUTO) 7.7 X10'3 (1.8-7.7); PLATELET COUNT 425 X10'3 (140-440); RED BLOOD COUNT 3.58 X10'6 (4.70-6.10); RED CELL DISTRIBUTION WIDTH 13.4 % (11.5-14.5)
[2019-04-26 08:08] LABS: ALANINE AMINOTRANSFERASE 34 U/L (12-78); ALBUMIN 1.9 G/DL (3.4-5.0); ALBUMIN/GLOBULIN RATIO 0.5 (1.1-1.5); ALKALINE PHOSPHATASE 68 IU/L (46-116); ANION GAP 1 (8-16); ASPARTATE AMINO TRANSFERASE 16 U/L (10-37); BILIRUBIN,TOTAL 0.3 MG/DL (0.1-1.0); BLOOD UREA NITROGEN 25 MG/DL (7-18); BUN/CREATININE RATIO 27.2 (5.4-32.0); CALCIUM 8.8 MG/DL (8.5-10.1); CHLORIDE 105 MMOL/L (99-107); CREATININE 0.92 MG/DL (0.60-1.10); MAGNESIUM 2.4 MG/DL (1.5-2.4); POTASSIUM 4.6 MMOL/L (3.5-5.1); SODIUM 137 MMOL/L (135-145); TOTAL CARBON DIOXIDE 31.5 MMOL/L (24-32); TOTAL PROTEIN 6.1 G/DL (6.4-8.2); eGFR 78 ML/MIN
[2019-04-26 08:10] LABS: GLUCOSE 108 MG/DL (70-104)
[2019-04-26] MEDS: K and/or MAG REPLACEMENT MC SCH ×2 (08:14→20:00)
[2019-04-26] MEDS: levoFLOXACIN-Levaquin 500mg/D5 100 ML IV SCH (08:23)
[2019-04-26] MEDS: methylPREDNISolone sod succ/PF 40mg inj. IV SCH ×2 (08:24→20:47)
[2019-04-26] MEDS: amiodarone 200mg tablet PO SCH ×2 (08:24→20:48)
[2019-04-26] MEDS: citalopram 20mg tablet PO SCH (08:25)
[2019-04-26] MEDS: metoprolol succinate 25mg (24-HOUR) SR. Tablet PO SCH (08:25)
[2019-04-26] MEDS: docusate sod 100mg capsule PO SCH ×2 (08:25→20:48)
[2019-04-26] MEDS: digoxin 250mcg (0.25mg) tablet PO SCH (08:25)
[2019-04-26] MEDS: lactobacillus rhamnosus 10,000 MMU CELLS/CAPSULE PO SCH ×2 (08:26→20:48)
[2019-04-26] MEDS: tamsulosin 0.4mg capsule PO SCH (08:26)
[2019-04-26] MEDS: lactose-reduced food (Ensure High Protein) 237ml bottle PO SCH ×3 (08:26→18:00)
[2019-04-26 08:28] LABS: PLATELET ESTIMATE NORMAL; TOTAL CELLS COUNTED 100
[2019-04-26 11:00] VITALS: BP 115/67
[2019-04-26 15:00] VITALS: BP 125/70
--- NOTE | 2019-04-26 18:45 | NUR ---
Patient in room PCU 3024. I have received report from MARIE Cui and had the opportunity to ask questions and assume patient care.
[2019-04-26 19:00] VITALS: BP 114/59
[2019-04-26] MEDS: Melatonin 3mg tablet PO PRN (20:48)
[2019-04-26] MEDS: pravastatin 40mg tablet PO SCH (20:54)
[2019-04-26] MEDS: insulin glargine (Lantus) pen - multi-dose SQ SCH (21:00)
[2019-04-26 23:00] VITALS: BP 108/56
[2019-04-27 03:00] VITALS: BP 122/74
[2019-04-27 05:57] LABS: BASOPHILS % (AUTO) 0.2 % (0-1); EOSINOPHILS % (AUTO) 0.1 % (0-6); HEMATOCRIT 34.8 % (42.0-52.0); LYMPHOCYTES # (AUTO) 0.6 X10'3 (1.1-4.8); LYMPHOCYTES % (AUTO) 7.7 % (21-51); MEAN CORPUSCULAR HEMOGLOBIN 34.2 PG (27.0-31.0); MEAN CORPUSCULAR HGB CONC 34.4 g/dL (33.0-36.5); MEAN CORPUSCULAR VOLUME 99.5 FL (78-98); MEAN PLATELET VOLUME 7.4 FL (7.4-10.4); MONOCYTES # (AUTO) 0.4 X10'3 (0-0.9); MONOCYTES % (AUTO) 4.5 % (2-12); NEUTROPHILS # (AUTO) 6.8 X10'3 (1.8-7.7); NEUTROPHILS % (AUTO) 87.5 % (42-75); PLATELET COUNT 408 X10'3 (140-440); RED CELL DISTRIBUTION WIDTH 13.7 % (11.5-14.5); WHITE BLOOD COUNT 7.8 X10'3 (4.5-11.0)
[2019-04-27 06:10] LABS: ALANINE AMINOTRANSFERASE 29 U/L (12-78); ALBUMIN 1.8 G/DL (3.4-5.0); ALBUMIN/GLOBULIN RATIO 0.5 (1.1-1.5); ALKALINE PHOSPHATASE 62 IU/L (46-116); ANION GAP 2 (8-16); ASPARTATE AMINO TRANSFERASE 10 U/L (10-37); BILIRUBIN,TOTAL 0.4 MG/DL (0.1-1.0); BLOOD UREA NITROGEN 24 MG/DL (7-18); BUN/CREATININE RATIO 25.8 (5.4-32.0); CALCIUM 8.3 MG/DL (8.5-10.1); CHLORIDE 103 MMOL/L (99-107); CREATININE 0.93 MG/DL (0.60-1.10); GLUCOSE 127 MG/DL (70-104); POTASSIUM 4.6 MMOL/L (3.5-5.1); SODIUM 136 MMOL/L (135-145); TOTAL CARBON DIOXIDE 30.7 MMOL/L (24-32); TOTAL PROTEIN 5.6 G/DL (6.4-8.2); eGFR 77 ML/MIN
[2019-04-27 06:14] LABS: TOTAL CELLS COUNTED 100
[2019-04-27 06:15] LABS: PLATELET ESTIMATE NORMAL
--- NOTE | 2019-04-27 06:15 | NUR ---
Problems reprioritized. Patient report given, questions answered & plan of care reviewed with MARIE Guerra.
--- NOTE | 2019-04-27 06:15 | NUR ---
Patient in room PCU 3024. I have received report from MARIE Conrad and had the opportunity to ask questions and assume patient care. Patient awake in bed with no complaints at this time. All immediate needs met.
--- NOTE | 2019-04-27 06:55 | NUR ---
Patient in room PCU 3024. I have received report from MARIE Conrad and had the opportunity to ask questions and assume patient care.
[2019-04-27 07:00] VITALS: BP 123/64
[2019-04-27] MEDS: lactose-reduced food (Ensure High Protein) 237ml bottle PO SCH ×3 (08:00→17:45)
[2019-04-27] MEDS: metoprolol succinate 25mg (24-HOUR) SR. Tablet PO SCH (08:04)
[2019-04-27] MEDS: levoFLOXACIN-Levaquin 500mg/D5 100 ML IV SCH (08:04)
[2019-04-27] MEDS: lactobacillus rhamnosus 10,000 MMU CELLS/CAPSULE PO SCH ×2 (08:05→20:35)
[2019-04-27] MEDS: docusate sod 100mg capsule PO SCH ×2 (08:05→20:35)
[2019-04-27] MEDS: citalopram 20mg tablet PO SCH (08:05)
[2019-04-27] MEDS: amiodarone 200mg tablet PO SCH ×2 (08:06→20:35)
[2019-04-27] MEDS: tamsulosin 0.4mg capsule PO SCH (08:07)
[2019-04-27] MEDS: digoxin 250mcg (0.25mg) tablet PO SCH (08:07)
[2019-04-27] MEDS: methylPREDNISolone sod succ/PF 40mg inj. IV SCH ×2 (08:08→20:35)
[2019-04-27] MEDS: K and/or MAG REPLACEMENT MC SCH ×2 (08:24→20:00)
[2019-04-27] MEDS: magnesium hydroxide 30ml (MOM) UD suspension PO PRN (08:24)
--- NOTE | 2019-04-27 09:51 | NUR ---
Initial: Pt admitted with afib with RVR and sepsis r/t pneumonia. Pt PO intake improved from 25-50% to 75-100% on a carb controlled, heart healthy diet with ONS consumption avg 75% meeting nutrient needs. LBM 04/25, pt is on routine bowel medication with PRN MoM given 04/27 and colace BID. Will continue to monitor. Recommendation: 1. continue carb controlled, heart healthy diet 2. continue Ensure HiProtein TIDWM 3. Routine bowel care 4. Weight per rx Addendum: 04/27/19 at 0951 by Wing Fadi LAKHANI Amended: Links added. Addendum: 04/27/19 at [address] KAR Approves
[2019-04-27 11:00] VITALS: BP 126/73
[2019-04-27 15:00] VITALS: BP 127/71
--- NOTE | 2019-04-27 18:08 | NUR ---
Problems reprioritized. Patient report given, questions answered & plan of care reviewed with MARIE Conrad. Pt stable during transfer of care
--- NOTE | 2019-04-27 18:08 | NUR ---
Problems reprioritized. Patient report given, questions answered & plan of care reviewed with Anamaria SALAZAR. Patient stable at transfer of care.
--- NOTE | 2019-04-27 18:20 | NUR ---
[place] documentation: I have reviewed and agree with all interventions, assessments performed and documented by Rosita SALAZAR. [place] Medication Administration: For this medication-pass time frame, all medication were reviewed, dispensed, administered and documented per hospital policy by Rosita SALAZAR.
--- NOTE | 2019-04-27 18:22 | NUR ---
Problems reprioritized. Patient report given, questions answered & plan of care reviewed with Anamaria SALAZAR. Patient stable at transfer of care.
[2019-04-27 19:00] VITALS: BP 137/77
[2019-04-27] MEDS: insulin glargine (Lantus) pen - multi-dose SQ SCH (21:00)
[2019-04-27] MEDS: normal saline 1000ml 1,000 ML IV SCH (21:13)
[2019-04-27] MEDS: pravastatin 40mg tablet PO SCH (21:17)
[2019-04-27 23:00] VITALS: BP 141/83
[2019-04-28 03:00] VITALS: BP 129/78
--- NOTE | 2019-04-28 06:22 | NUR ---
Problems reprioritized. Patient report given, questions answered & plan of care reviewed with MARIE Guerra.
--- NOTE | 2019-04-28 06:22 | NUR ---
Patient in room PCU 3024. I have received report from Anamaria SALAZAR and had the opportunity to ask questions and assume patient care. Patient awake in bed with no complaints at this time. All immediate needs met.
[2019-04-28 07:00] VITALS: BP 145/85
[2019-04-28] MEDS: K and/or MAG REPLACEMENT MC SCH ×2 (08:00→20:00)
[2019-04-28] MEDS: lactose-reduced food (Ensure High Protein) 237ml bottle PO SCH ×3 (08:00→18:00)
[2019-04-28] MEDS: methylPREDNISolone sod succ/PF 40mg inj. IV SCH ×2 (08:09→20:58)
[2019-04-28] MEDS: lactobacillus rhamnosus 10,000 MMU CELLS/CAPSULE PO SCH ×2 (08:09→20:58)
[2019-04-28] MEDS: levoFLOXACIN-Levaquin 500mg/D5 100 ML IV SCH (08:09)
[2019-04-28] MEDS: docusate sod 100mg capsule PO SCH ×2 (08:10→20:58)
[2019-04-28] MEDS: amiodarone 200mg tablet PO SCH (08:10)
[2019-04-28] MEDS: tamsulosin 0.4mg capsule PO SCH (08:10)
[2019-04-28] MEDS: citalopram 20mg tablet PO SCH (08:10)
[2019-04-28] MEDS: digoxin 250mcg (0.25mg) tablet PO SCH (08:10)
[2019-04-28] MEDS: metoprolol succinate 25mg (24-HOUR) SR. Tablet PO SCH (08:10)
[2019-04-28 11:00] VITALS: BP 124/72
[2019-04-28] MEDS ORDERED: TPA CATHFLO ICATH ONE (11:20)
[2019-04-28] MEDS ORDERED: NORMAL SALINE ICATH ONE (11:20)
[2019-04-28] MEDS ORDERED: FLUSH 4 MG ICATH ONE (11:20)
--- NOTE | 2019-04-28 12:00 | NUR ---
Activase cathflow 4 mg in 50 mL administered by Armen URIAS using 2 patient identifiers. Activase instilled into chest tube.
[2019-04-28 15:00] VITALS: BP 129/76
[2019-04-28] MEDS: mag hydrox/Alum hydrox/simeth 30ml oral suspension PO PRN ×2 (17:17→21:00)
[2019-04-28] MEDS: normal saline 1000ml 1,000 ML IV SCH (17:19)
--- NOTE | 2019-04-28 18:15 | NUR ---
Per BRIDGETT Grijalva, chest tube stop cock turned back on after instillation of cathflo TPA.
--- NOTE | 2019-04-28 18:36 | NUR ---
Patient in room PCU 3024. I have received report from rn and had the opportunity to ask questions and assume patient care.
[2019-04-28 19:00] VITALS: BP 114/62
[2019-04-28] MEDS: Melatonin 3mg tablet PO PRN (20:58)
[2019-04-28] MEDS: insulin glargine (Lantus) pen - multi-dose SQ SCH (21:00)
[2019-04-28] MEDS: pravastatin 40mg tablet PO SCH (21:19)
[2019-04-28 23:00] VITALS: BP 105/68
[2019-04-29] VITALS (7 sets, daily range): BP systolic 85–107; BP diastolic 49–90
--- NOTE | 2019-04-29 00:45 | NUR ---
Pt attempted to use urinal, felt dizzy and fell back. Pt reports 01/20 in the left lateral chest area. Pain is new in intensity. EKG showed no changes. notified, new orders for chest xray Addendum: 04/29/19 at 0102 by Diana Sepulveda RN Vitals taken, pt placed on O2.
[2019-04-29] MEDS ORDERED: HYDROcodone/acetaminophen 5mg/325mg tablet PO ONE (01:15)
--- NOTE | 2019-04-29 06:30 | NUR ---
Patient in room PCU 3024. I have received report from MARIE Bundy and had the opportunity to ask questions and assume patient care.
[2019-04-29] MEDS: metoprolol succinate 25mg (24-HOUR) SR. Tablet PO SCH (08:00)
[2019-04-29] MEDS: K and/or MAG REPLACEMENT MC SCH ×2 (08:00→20:02)
[2019-04-29] MEDS: lactose-reduced food (Ensure High Protein) 237ml bottle PO SCH ×3 (08:00→18:00)
[2019-04-29] MEDS: dabigatran 150mg capsule PO SCH (08:00)
[2019-04-29] MEDS: levoFLOXACIN-Levaquin 500mg/D5 100 ML IV SCH (09:38)
[2019-04-29] MEDS: docusate sod 100mg capsule PO SCH ×2 (09:39→20:09)
[2019-04-29] MEDS: tamsulosin 0.4mg capsule PO SCH (09:39)
[2019-04-29] MEDS: citalopram 20mg tablet PO SCH (09:39)
[2019-04-29] MEDS: digoxin 250mcg (0.25mg) tablet PO SCH (09:39)
[2019-04-29] MEDS: lactobacillus rhamnosus 10,000 MMU CELLS/CAPSULE PO SCH ×2 (09:39→20:09)
[2019-04-29] MEDS ORDERED: TPA CATHFLO ICATH ONE (09:55)
[2019-04-29] MEDS ORDERED: FLUSH 4 MG ICATH ONE (09:55)
[2019-04-29] MEDS ORDERED: NORMAL SALINE ICATH ONE (09:55)
--- NOTE | 2019-04-29 10:04 | NUR ---
Per distribution clerk pt no longer wants the Ensure High Protein. Pt overall with 75-100% PO intake meeting nutrient needs, ONS not necessary at this time. Will continue to follow. Addendum: 04/29/19 at [address] Amended: Links added.
[2019-04-29] MEDS: morphine 2 MG/ML inj. syringe IV PRN ×2 (11:58→18:35)
[2019-04-29 12:06] LABS: BASOPHILS # (AUTO) 0.1 X10'3 (0-0.2); BASOPHILS % (AUTO) 0.4 % (0-1); EOSINOPHILS # (AUTO) 0.1 X10'3 (0-0.9); EOSINOPHILS % (AUTO) 0.4 % (0-6); HEMATOCRIT 41.9 % (42.0-52.0); HEMOGLOBIN 14.1 g/dl (14.0-17.9); LYMPHOCYTES # (AUTO) 1.3 X10'3 (1.1-4.8); LYMPHOCYTES % (AUTO) 8.7 % (21-51); MEAN CORPUSCULAR HEMOGLOBIN 33.3 PG (27.0-31.0); MEAN CORPUSCULAR HGB CONC 33.7 g/dL (33.0-36.5); MEAN CORPUSCULAR VOLUME 98.6 FL (78-98); MONOCYTES # (AUTO) 1.6 X10'3 (0-0.9); MONOCYTES % (AUTO) 10.4 % (2-12); NEUTROPHILS # (AUTO) 12.2 X10'3 (1.8-7.7); NEUTROPHILS % (AUTO) 80.1 % (42-75); PLATELET COUNT 415 X10'3 (140-440); RED BLOOD COUNT 4.25 X10'6 (4.70-6.10); RED CELL DISTRIBUTION WIDTH 13.6 % (11.5-14.5); WHITE BLOOD COUNT 15.2 X10'3 (4.5-11.0)
[2019-04-29 12:15] LABS: ALANINE AMINOTRANSFERASE 25 U/L (12-78); ALBUMIN/GLOBULIN RATIO 0.6 (1.1-1.5); ALKALINE PHOSPHATASE 63 IU/L (46-116); ANION GAP -2 (8-16); ASPARTATE AMINO TRANSFERASE 10 U/L (10-37); BILIRUBIN,TOTAL 0.6 MG/DL (0.1-1.0); BLOOD UREA NITROGEN 26 MG/DL (7-18); BUN/CREATININE RATIO 24.8 (5.4-32.0); CALCIUM 8.1 MG/DL (8.5-10.1); CHLORIDE 100 MMOL/L (99-107); CREATININE 1.05 MG/DL (0.60-1.10); MAGNESIUM 2.1 MG/DL (1.5-2.4); PHOSPHORUS 3.7 MG/DL (2.3-4.5); POTASSIUM 4.7 MMOL/L (3.5-5.1); SODIUM 134 MMOL/L (135-145); TOTAL CARBON DIOXIDE 35.7 MMOL/L (24-32); TOTAL PROTEIN 5.6 G/DL (6.4-8.2); eGFR 67 ML/MIN
[2019-04-29] MEDS: normal saline 1000ml 1,000 ML IV SCH ×2 (12:16→22:00)
[2019-04-29 12:21] LABS: GLUCOSE 92 MG/DL (70-104)
[2019-04-29 13:15] LABS: PLATELET ESTIMATE NORMAL; TOTAL CELLS COUNTED 100
--- NOTE | 2019-04-29 17:58 | NUR ---
[place] documentation: I have reviewed and agree with interventions, assessments performed and documented by Rosita SALAZAR. [place] Medication Administration: For this medication-pass time frame, medication were reviewed, dispensed, administered and documented per hospital policy by Rosita SALAZAR.
--- NOTE | 2019-04-29 18:43 | NUR ---
Problems reprioritized. Patient report given, questions answered & plan of care reviewed with Ambika SALAZAR.
--- NOTE | 2019-04-29 19:04 | NUR ---
Patient in room PCU 3024. I have received report from Cassia SALAZAR and had the opportunity to ask questions and assume patient care. bedside report completed.
[2019-04-29] MEDS: Melatonin 3mg tablet PO PRN (20:09)
[2019-04-29] MEDS: pravastatin 40mg tablet PO SCH (20:09)
[2019-04-29] MEDS: HYDROcodone/acetaminophen 5mg/325mg tablet PO PRN (20:10)
[2019-04-29] MEDS: insulin glargine (Lantus) pen - multi-dose SQ SCH (21:00)
[2019-04-30 02:57] VITALS: BP 97/60
[2019-04-30 05:33] LABS: BASOPHILS % (AUTO) 0.3 % (0-1); EOSINOPHILS # (AUTO) 0.1 X10'3 (0-0.9); EOSINOPHILS % (AUTO) 0.4 % (0-6); HEMATOCRIT 39.1 % (42.0-52.0); HEMOGLOBIN 13.1 g/dl (14.0-17.9); LYMPHOCYTES # (AUTO) 1.4 X10'3 (1.1-4.8); MEAN CORPUSCULAR HEMOGLOBIN 33.5 PG (27.0-31.0); MEAN CORPUSCULAR HGB CONC 33.5 g/dL (33.0-36.5); MEAN CORPUSCULAR VOLUME 99.9 FL (78-98); MONOCYTES # (AUTO) 1.5 X10'3 (0-0.9); NEUTROPHILS # (AUTO) 9.4 X10'3 (1.8-7.7); NEUTROPHILS % (AUTO) 76.3 % (42-75); PLATELET COUNT 307 X10'3 (140-440); RED BLOOD COUNT 3.92 X10'6 (4.70-6.10); RED CELL DISTRIBUTION WIDTH 13.3 % (11.5-14.5); WHITE BLOOD COUNT 12.4 X10'3 (4.5-11.0)
[2019-04-30 05:51] LABS: ALANINE AMINOTRANSFERASE 22 U/L (12-78); ALBUMIN 1.6 G/DL (3.4-5.0); ALBUMIN/GLOBULIN RATIO 0.5 (1.1-1.5); ALKALINE PHOSPHATASE 51 IU/L (46-116); ANION GAP 5 (8-16); ASPARTATE AMINO TRANSFERASE 10 U/L (10-37); BILIRUBIN,TOTAL 0.5 MG/DL (0.1-1.0); BLOOD UREA NITROGEN 25 MG/DL (7-18); BUN/CREATININE RATIO 26.3 (5.4-32.0); CALCIUM 7.7 MG/DL (8.5-10.1); CHLORIDE 102 MMOL/L (99-107); CREATININE 0.95 MG/DL (0.60-1.10); GLUCOSE 98 MG/DL (70-104); MAGNESIUM 1.8 MG/DL (1.5-2.4); PHOSPHORUS 3.3 MG/DL (2.3-4.5); POTASSIUM 4.4 MMOL/L (3.5-5.1); SODIUM 136 MMOL/L (135-145); TOTAL CARBON DIOXIDE 29.3 MMOL/L (24-32); TOTAL PROTEIN 4.9 G/DL (6.4-8.2); eGFR 76 ML/MIN
[2019-04-30 06:00] VITALS: BP 96/51
[2019-04-30] MEDS: magnesium hydroxide 30ml (MOM) UD suspension PO PRN (06:03)
[2019-04-30] MEDS: HYDROcodone/acetaminophen 5mg/325mg tablet PO PRN ×2 (06:03→16:01)
--- NOTE | 2019-04-30 06:27 | NUR ---
Problems reprioritized. Patient report given, questions answered & plan of care reviewed with Mercedes Watson.Bedside report completed.
--- NOTE | 2019-04-30 06:39 | NUR ---
Patient in room PCU 3024. I have received report from Brie SALAZAR and had the opportunity to ask questions and assume patient care.
[2019-04-30] MEDS: lactobacillus rhamnosus 10,000 MMU CELLS/CAPSULE PO SCH ×2 (08:00→20:48)
[2019-04-30] MEDS: K and/or MAG REPLACEMENT MC SCH ×2 (08:00→20:33)
[2019-04-30] MEDS: docusate sod 100mg capsule PO SCH ×2 (08:00→20:48)
[2019-04-30] MEDS: metoprolol succinate 25mg (24-HOUR) SR. Tablet PO SCH (08:00)
[2019-04-30] MEDS: citalopram 20mg tablet PO SCH (08:01)
[2019-04-30] MEDS: digoxin 250mcg (0.25mg) tablet PO SCH (08:01)
[2019-04-30] MEDS: tamsulosin 0.4mg capsule PO SCH (08:01)
[2019-04-30] MEDS: lactose-reduced food (Ensure High Protein) 237ml bottle PO SCH ×3 (08:02→18:00)
[2019-04-30] MEDS: levoFLOXACIN-Levaquin 500mg/D5 100 ML IV SCH (08:02)
[2019-04-30] MEDS ORDERED: NORMAL SALINE IVF ONE (10:50)
[2019-04-30] MEDS ORDERED: TPA CATHFLO IVF ONE (10:50)
[2019-04-30] MEDS ORDERED: FLUSH 4 MG IVF ONE (10:50)
[2019-04-30 11:00] VITALS: BP 119/58
[2019-04-30] MEDS: dextrose ORAL solution 15 GM/59 ML bottle PO PRN (12:15)
[2019-04-30] MEDS: levoFLOXACIN 750MG TABLET PO SCH (12:27)
--- NOTE | 2019-04-30 12:50 | NUR ---
Spoke with Dr. Loza regarding patient's HR in the 130's. Orders for 12 Lead EKG.
[2019-04-30 15:00] VITALS: BP 108/62
[2019-04-30 18:00] VITALS: BP 96/47
--- NOTE | 2019-04-30 18:10 | NUR ---
Patient report given, questions answered & plan of care reviewed with Clark SALAZAR. Patient stable at time of transfer of care.
--- NOTE | 2019-04-30 18:22 | NUR ---
Patient in room PCU 3024. I have received report from Natasha SALAZAR and had the opportunity to ask questions and assume patient care.
[2019-04-30] MEDS: pravastatin 40mg tablet PO SCH (20:48)
[2019-04-30] MEDS: insulin glargine (Lantus) pen - multi-dose SQ SCH (21:00)
[2019-04-30 22:00] VITALS: BP 91/49
[2019-05-01] MEDS: HYDROcodone/acetaminophen 5mg/325mg tablet PO PRN ×2 (01:46→17:07)
[2019-05-01 02:00] VITALS: BP 92/46
[2019-05-01] MEDS: normal saline 1000ml 1,000 ML IV SCH ×2 (02:56→23:52)
--- NOTE | 2019-05-01 04:23 | NUR ---
Problems reprioritized. Patient report given, questions answered & plan of care reviewed with Priscila SALAZAR.
--- NOTE | 2019-05-01 04:28 | NUR ---
Patient in room PCU 3024B. I have received report from Shirley Rodas and had the opportunity to ask questions and assume patient care.
[2019-05-01 06:00] VITALS: BP 90/52
[2019-05-01 06:19] LABS: BASOPHILS # (AUTO) 0.1 X10'3 (0-0.2); BASOPHILS % (AUTO) 0.5 % (0-1); EOSINOPHILS % (AUTO) 0.3 % (0-6); HEMATOCRIT 35.3 % (42.0-52.0); HEMOGLOBIN 12.1 g/dl (14.0-17.9); LYMPHOCYTES # (AUTO) 0.8 X10'3 (1.1-4.8); LYMPHOCYTES % (AUTO) 4.4 % (21-51); MEAN CORPUSCULAR HEMOGLOBIN 33.6 PG (27.0-31.0); MEAN CORPUSCULAR HGB CONC 34.2 g/dL (33.0-36.5); MEAN CORPUSCULAR VOLUME 98.1 FL (78-98); MEAN PLATELET VOLUME 7.9 FL (7.4-10.4); MONOCYTES # (AUTO) 1.4 X10'3 (0-0.9); NEUTROPHILS # (AUTO) 15.5 X10'3 (1.8-7.7); NEUTROPHILS % (AUTO) 86.8 % (42-75); PLATELET COUNT 261 X10'3 (140-440); RED CELL DISTRIBUTION WIDTH 13.1 % (11.5-14.5); WHITE BLOOD COUNT 17.9 X10'3 (4.5-11.0)
--- NOTE | 2019-05-01 06:20 | NUR ---
Problems reprioritized. Patient report given, questions answered & plan of care reviewed with MARIE Kaur. Patient stable at shift change
[2019-05-01 06:27] LABS: ALANINE AMINOTRANSFERASE 18 U/L (12-78); ALBUMIN 1.4 G/DL (3.4-5.0); ALBUMIN/GLOBULIN RATIO 0.4 (1.1-1.5); ALKALINE PHOSPHATASE 58 IU/L (46-116); ANION GAP 3 (8-16); BILIRUBIN,TOTAL 0.8 MG/DL (0.1-1.0); BLOOD UREA NITROGEN 19 MG/DL (7-18); BUN/CREATININE RATIO 21.1 (5.4-32.0); CALCIUM 7.6 MG/DL (8.5-10.1); CHLORIDE 100 MMOL/L (99-107); GLUCOSE 94 MG/DL (70-104); SODIUM 132 MMOL/L (135-145); TOTAL CARBON DIOXIDE 29.5 MMOL/L (24-32); TOTAL PROTEIN 4.8 G/DL (6.4-8.2); eGFR 80 ML/MIN
[2019-05-01 06:30] LABS: ASPARTATE AMINO TRANSFERASE 21 U/L (10-37); PHOSPHORUS 2.7 MG/DL (2.3-4.5); POTASSIUM 4.8 MMOL/L (3.5-5.1)
[2019-05-01 07:13] LABS: TOTAL CELLS COUNTED 100
[2019-05-01 07:14] LABS: PLATELET ESTIMATE NORMAL
[2019-05-01 07:17] LABS: SCHISTOCYTES FEW
[2019-05-01] MEDS: metoprolol succinate 25mg (24-HOUR) SR. Tablet PO SCH (08:00)
[2019-05-01] MEDS: K and/or MAG REPLACEMENT MC SCH ×2 (08:00→20:30)
[2019-05-01] MEDS: lactose-reduced food (Ensure High Protein) 237ml bottle PO SCH ×3 (08:00→18:00)
[2019-05-01] MEDS: tamsulosin 0.4mg capsule PO SCH (08:22)
[2019-05-01] MEDS: lactobacillus rhamnosus 10,000 MMU CELLS/CAPSULE PO SCH ×2 (08:22→20:59)
[2019-05-01] MEDS: citalopram 20mg tablet PO SCH (08:23)
[2019-05-01] MEDS: docusate sod 100mg capsule PO SCH ×2 (08:23→20:59)
[2019-05-01] MEDS: digoxin 250mcg (0.25mg) tablet PO SCH (08:26)
[2019-05-01] MEDS: CefTRIAXone 2gm/D5W 50ml 50 ML IV SCH (10:51)
[2019-05-01] MEDS: levoFLOXACIN 750MG TABLET PO SCH (10:51)
[2019-05-01 11:00] VITALS: BP 104/63
[2019-05-01 15:00] VITALS: BP 99/58
--- NOTE | 2019-05-01 15:20 | NUR ---
Reassessment: Pt PO intake has declined avg 50% of meals on carb controlled heart healthy diet, possibly r/t constipation with LBM 04/27. Pt is receiving routine bowel care and PRN MoM last given 04/30. Pt visited at bedside, provided pt with carb controlled heart healthy alternative menu to provide additional food options and optimize PO intake as well as RD contact information. Pt reports poor appetite and did not remember his food preferences but stated that his knows his preferences however not present at bedside. internal controls specialist encouraged PO intake, pt was agreeable to resume Ensure High Protein, d/w dietary. Will continue to monitor. Recommendation: 1. continue carb controlled, heart healthy diet; encourage PO intake 2. Ensure high protein TIDWM 3. Routine bowel care 4. Weight per rx Addendum: 05/01/19 at [address] Amended: Links added. Addendum: 05/01/19 at [address] I have reviewed and agree with note by Call Worker Person. Xenia He, KAR
[2019-05-01 16:29] LABS: BASOPHILS # (AUTO) 0.1 X10'3 (0-0.2); BASOPHILS % (AUTO) 0.6 % (0-1); EOSINOPHILS # (AUTO) 0.1 X10'3 (0-0.9); EOSINOPHILS % (AUTO) 0.7 % (0-6); HEMATOCRIT 34.8 % (42.0-52.0); HEMOGLOBIN 11.9 g/dl (14.0-17.9); LYMPHOCYTES # (AUTO) 0.7 X10'3 (1.1-4.8); MEAN CORPUSCULAR HEMOGLOBIN 33.8 PG (27.0-31.0); MEAN CORPUSCULAR HGB CONC 34.1 g/dL (33.0-36.5); MEAN PLATELET VOLUME 8.1 FL (7.4-10.4); MONOCYTES # (AUTO) 1.2 X10'3 (0-0.9); MONOCYTES % (AUTO) 9.2 % (2-12); NEUTROPHILS # (AUTO) 11.3 X10'3 (1.8-7.7); NEUTROPHILS % (AUTO) 84.5 % (42-75); PLATELET COUNT 245 X10'3 (140-440); RED BLOOD COUNT 3.52 X10'6 (4.70-6.10); RED CELL DISTRIBUTION WIDTH 13.5 % (11.5-14.5); WHITE BLOOD COUNT 13.4 X10'3 (4.5-11.0)
[2019-05-01 16:50] LABS: TOTAL CELLS COUNTED 100
[2019-05-01 16:51] LABS: BURR CELLS 1+; PLATELET ESTIMATE NORMAL; TOXIC GRANULATION 1+
--- NOTE | 2019-05-01 17:18 | NUR ---
Page Dr. Loza PAGER ID: [phone] MESSAGE: Room 3024B Abhishek Stanton: Patient's left arm is warm, with redness and swollen. There is tenderness to the touch in the left AC area. Please advise, thank you Natasha ext [phone].
--- NOTE | 2019-05-01 17:25 | NUR ---
Spoke with Dr. Loza regarding Pt's condition. Dr. Loza to order Doppler study of left arm.
[2019-05-01 18:00] VITALS: BP 96/52
--- NOTE | 2019-05-01 18:09 | NUR ---
Problems reprioritized. Patient report given, questions answered & plan of care reviewed with Clark SALAZAR. Patient stable at time of transfer of care.
--- NOTE | 2019-05-01 18:11 | NUR ---
Patient in room PCU 3024. I have received report from Natasha SALAZAR and had the opportunity to ask questions and assume patient care.
[2019-05-01] MEDS: pravastatin 40mg tablet PO SCH (20:59)
[2019-05-01] MEDS: insulin glargine (Lantus) pen - multi-dose SQ SCH (21:00)
[2019-05-01 22:00] VITALS: BP 98/52
[2019-05-02 02:00] VITALS: BP 102/56
[2019-05-02] MEDS: HYDROcodone/acetaminophen 5mg/325mg tablet PO PRN (05:56)
[2019-05-02 06:00] VITALS: BP 113/60
--- NOTE | 2019-05-02 06:19 | NUR ---
Problems reprioritized. Patient report given, questions answered & plan of care reviewed with Natasha SALAZAR.
--- NOTE | 2019-05-02 06:19 | NUR ---
Patient in room PCU 3024. I have received report from Clark SALAZAR and had the opportunity to ask questions and assume patient care.
[2019-05-02 06:56] LABS: BASOPHILS % (AUTO) 0.3 % (0-1); EOSINOPHILS # (AUTO) 0.1 X10'3 (0-0.9); EOSINOPHILS % (AUTO) 0.8 % (0-6); HEMATOCRIT 35.9 % (42.0-52.0); LYMPHOCYTES # (AUTO) 0.8 X10'3 (1.1-4.8); LYMPHOCYTES % (AUTO) 7.3 % (21-51); MEAN CORPUSCULAR HEMOGLOBIN 33.3 PG (27.0-31.0); MEAN CORPUSCULAR HGB CONC 33.5 g/dL (33.0-36.5); MEAN CORPUSCULAR VOLUME 99.4 FL (78-98); MEAN PLATELET VOLUME 8.1 FL (7.4-10.4); MONOCYTES # (AUTO) 1.2 X10'3 (0-0.9); MONOCYTES % (AUTO) 10.5 % (2-12); NEUTROPHILS # (AUTO) 9.4 X10'3 (1.8-7.7); NEUTROPHILS % (AUTO) 81.1 % (42-75); PLATELET COUNT 249 X10'3 (140-440); RED BLOOD COUNT 3.61 X10'6 (4.70-6.10); RED CELL DISTRIBUTION WIDTH 13.7 % (11.5-14.5); WHITE BLOOD COUNT 11.7 X10'3 (4.5-11.0)
[2019-05-02] MEDS: dextrose ORAL solution 15 GM/59 ML bottle PO PRN (07:12)
[2019-05-02 07:17] LABS: ALANINE AMINOTRANSFERASE 21 U/L (12-78); ALBUMIN 1.5 G/DL (3.4-5.0); ALBUMIN/GLOBULIN RATIO 0.4 (1.1-1.5); ANION GAP 3 (8-16); ASPARTATE AMINO TRANSFERASE 14 U/L (10-37); BILIRUBIN,TOTAL 0.4 MG/DL (0.1-1.0); BLOOD UREA NITROGEN 13 MG/DL (7-18); BUN/CREATININE RATIO 14.8 (5.4-32.0); CALCIUM 7.7 MG/DL (8.5-10.1); CHLORIDE 100 MMOL/L (99-107); CREATININE 0.88 MG/DL (0.60-1.10); GLUCOSE 67 MG/DL (70-104); MAGNESIUM 1.8 MG/DL (1.5-2.4); PHOSPHORUS 2.5 MG/DL (2.3-4.5); SODIUM 134 MMOL/L (135-145); TOTAL CARBON DIOXIDE 31.5 MMOL/L (24-32); TOTAL PROTEIN 4.9 G/DL (6.4-8.2); eGFR 83 ML/MIN
--- NOTE | 2019-05-02 07:17 | NUR ---
Page Dr. Loza PAGER ID: [phone] MESSAGE: Room 3024B Abhishek Stanton: Patient's blood sugar this morning is 59. He received one dose of the 15 mg glucose shot and will recheck blood sugar in 15 min. Thank you ext [phone].
[2019-05-02 07:18] LABS: ALKALINE PHOSPHATASE 63 IU/L (46-116)
[2019-05-02] MEDS: CefTRIAXone 2gm/D5W 50ml 50 ML IV SCH (07:32)
[2019-05-02] MEDS: citalopram 20mg tablet PO SCH (07:33)
[2019-05-02] MEDS: tamsulosin 0.4mg capsule PO SCH (07:33)
[2019-05-02] MEDS: lactobacillus rhamnosus 10,000 MMU CELLS/CAPSULE PO SCH (07:33)
[2019-05-02] MEDS: docusate sod 100mg capsule PO SCH (07:33)
[2019-05-02] MEDS: magnesium hydroxide 30ml (MOM) UD suspension PO PRN (07:33)
[2019-05-02] MEDS: digoxin 250mcg (0.25mg) tablet PO SCH (07:36)
[2019-05-02] MEDS: metoprolol succinate 25mg (24-HOUR) SR. Tablet PO SCH (07:36)
[2019-05-02] MEDS ORDERED: CefTRIAXone 2gm/D5W 50ml 50 ML IV SCH (08:00)
[2019-05-02] MEDS: K and/or MAG REPLACEMENT MC SCH (08:00)
[2019-05-02] MEDS: lactose-reduced food (Ensure High Protein) 237ml bottle PO SCH ×2 (08:00→13:00)
[2019-05-02] MEDS ORDERED: LEVO750T46 PO (10:55)
[2019-05-02 11:00] VITALS: BP 96/50
[2019-05-02] MEDS: levoFLOXACIN 750MG TABLET PO SCH (12:38)
[2019-05-02 15:00] VITALS: BP 113/60
--- NOTE | 2019-05-02 15:02 | NUR ---
Page Dr. 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 Non detected in deep veins, normal compressible deep veins w/ phasic flow throughout. Ok to still discharge home? Natasha ext [phone]
--- NOTE | 2019-05-02 15:40 | NUR ---
Patient stable for discharge per MD orders. All discharge instructions reviewed with patient and spouse. All questions answered. PIV and security monitor discontinued. All new medications called into patient's preferred pharmacy. Belongings collected and sent with patient. Patient left in private vehicle with spouse. Patient wheeled down to lobby by PCT aide.
== END 2019-05-02 15:41 | disposition home or self-care (01) | DRG 871 ==
LOC: ER 20:47 → ED HOLD 04-22 00:16 → PCU 3S 04-22 01:25
PROVIDERS: ADMIT Family Medicine; ATTEND Internal Medicine
PROC: B32T1ZZ Computerized Tomography (CT Scan) of Left Pulmonary Artery using Low Osmolar Contrast (ICD-10-PCS; 2019-04-22)
PROC: B3201ZZ Computerized Tomography (CT Scan) of Thoracic Aorta using Low Osmolar Contrast (ICD-10-PCS; 2019-04-22)
PROC: B32S1ZZ Computerized Tomography (CT Scan) of Right Pulmonary Artery using Low Osmolar Contrast (ICD-10-PCS; 2019-04-22)
PROC: 0W9B30Z Drainage of Left Pleural Cavity with Drainage Device, Percutaneous Approach (ICD-10-PCS; principal; 2019-04-24)
PROC: 3E0L3GC Introduction of Other Therapeutic Substance into Pleural Cavity, Percutaneous Approach (ICD-10-PCS; 2019-04-29)
DX: A41.9 Sepsis, unspecified organism (principal); J18.9 Pneumonia, unspecified organism; J91.8 Pleural effusion in other conditions classified elsewhere; I48.20 Chronic atrial fibrillation, unspecified; Z96.611 Presence of right artificial shoulder joint; W18.39XA Other fall on same level, initial encounter; R09.02 Hypoxemia; R55 Syncope and collapse; E11.9 Type 2 diabetes mellitus without complications; E78.00 Pure hypercholesterolemia, unspecified; N28.9 Disorder of kidney and ureter, unspecified; Z79.899 Other long term (current) drug therapy; Z86.73 Personal history of transient ischemic attack (TIA), and cerebral infarction without residual deficits; Y93.89 Activity, other specified; Y99.8 Other external cause status; Z95.0 Presence of cardiac pacemaker; Z90.49 Acquired absence of other specified parts of digestive tract; Y92.098 Other place in other non-institutional residence as the place of occurrence of the external cause
CPT/HCPCS: 32422; 32557; 36415; 36600; 71045; 71275; 76937; 80053; 80162; 82803; 82945; 82948; 83036; 83605; 83615; 83735; 83880; 83986; 84100; 84145; 84157; 84484; 85018; 85025; 85610; 85730; 87040; 87070; 87081; 88108; 88305; 89051; 93005; 93971; 94640; 94667; 94760; 96365; 96368; 97112; 97116; 97161; 97530; 97535; 99285; G0378; J0282; J0696; J1160; J1170; J1815; J1956; J2270; J2920; J2930; J2997; J3490; J7030; Q9967